=== PATIENT | female | born 1955 | race Caucasian/White ===

== ENCOUNTER 2019-08-10 | Emergency (ER) | payer OTHER ==
[2019-08-10] MEDS ORDERED: MOTRIN400 MG PO (18:54)
== END 2019-08-10 19:42 | disposition home or self-care (01) | DRG 563 ==
PROC: 0RSMXZZ Reposition Left Elbow Joint, External Approach (ICD-10-PCS; principal; 2019-08-10)
DX: S53.005A Unspecified dislocation of left radial head, initial encounter (principal); I10 Essential (primary) hypertension; W19.XXXA Unspecified fall, initial encounter; Y93.69 Activity, other involving other sports and athletics played as a team or group; Y92.833 Campsite as the place of occurrence of the external cause